=== PATIENT | male | born 1960 | race Caucasian/White ===

== ENCOUNTER 2017-09-04 15:40 | Emergency (ER) | payer OTHER ==
[~2017-09-04] VITALS: Ht 172.7 cm; Wt 70.1 kg
[2017-09-04] MEDS ORDERED: DILANTIN100 MG PO ×2 (15:46→18:32)
[2017-09-04 16:35] LABS: URINE BILIRUBIN NEGATIVE (Negative); URINE BLOOD 3+ (Negative); URINE CLARITY CLEAR; URINE COLOR YELLOW; URINE GLUCOSE-RANDOM NEGATIVE (Negative); URINE KETONES NEGATIVE (Negative); URINE LEUKOCYTES-REFLEX NEGATIVE (Negative); URINE NITRITE-REFLEX NEGATIVE (Negative); URINE PROTEIN 3+ (Negative); URINE SPECIFIC GRAVITY 1.025 (1.005-1.030)
[2017-09-04 16:35] LABS: ABSOLUTE EOSINOPHILS 0.4 thou/uL (0.0-0.7); ABSOLUTE LYMPHOCYTES 1.6 thou/uL (0.8-5.3); ABSOLUTE MONOCYTES 0.5 thou/uL (0.0-1.2); BASOPHILS 0.6 %; EOSINOPHILS 8.1 %; HEMATOCRIT 39.4 % (42.0-52.0); HEMOGLOBIN 13.6 gm/dL (14.0-18.0); LYMPHOCYTES 35.4 %; MCH 31.7 pg (26.0-34.0); MCHC 34.5 g/dL (28.0-37.0); MCV 91.8 fL (80.0-100.0); MONOCYTES 11.6 %; MPV 10.2 fl. (7.2-11.1); NUCLEATED RBCS 0 /100WBC; PLATELET COUNT* 70 thou/uL (150-400); POLYS 44.3 %; RBC 4.29 mil/uL (4.50-6.00); RDW-CV 15.1 % (10.5-14.5); WBC 4.5 thou/uL (4.0-11.0)
[2017-09-04 16:41] LABS: ANION GAP 4 mmol/L (7-16); BUN 24 mg/dL (7-18); CALCIUM 8.7 mg/dL (8.5-10.1); CHLORIDE 106 mmol/L (98-107); CO2 32 mmol/L (21-32); CREATININE 1.9 mg/dL (0.6-1.3); GLUCOSE 87 mg/dL (70-99); POTASSIUM 3.5 mmol/L (3.5-5.1); SODIUM 142 mmol/L (136-145)
[2017-09-04 16:44] LABS: HYALINE CASTS 4-10 Moderate /LPF (None Seen); MUCUS None Seen strn/LPF (None Seen); SQUAMOUS 0-3 Few /LPF (0-3)
[2017-09-04 16:45] LABS: BACTERIA-REFLEX 1-9 Few /HPF (None Seen); CRYSTALS None Seen /LPF (None Seen); URINE RBC 3-10 Few /HPF (0-2); URINE WBC-REFLEX 0-5 Rare /HPF (0-5)
[2017-09-04 16:53] LABS: ALBUMIN 2.4 g/dL (3.4-5.0); ALKALINE PHOSPHATASE 92 U/L (46-116); SGOT 62 U/L (15-37); SGPT 39 U/L (30-65); TOTAL BILIRUBIN 0.8 mg/dL (<0.1-1.0); TROPONIN-I LEVEL <0.06 ng/mL (<0.06)
[2017-09-04] MEDS ORDERED: LISINOPRIL10 MG PO (18:32)
[2017-09-04] MEDS ORDERED: HYDROCHLOROTHIA25 M2 PO (18:32)
[2017-09-04 18:54] VITALS: BP 170/101
--- NOTE | 2017-09-05 10:55 | EKG ---
[place] [address] ELECTROCARDIOGRAM REPORT Name: MAURO HOU [id number] Admission: 09/04/17 Attend Phys: Discharge: 09/04/17 Date of : 64 Report #: [id number] THIS REPORT FOR: //name// [facility] ED Test Date: 2017-09-04 Test Time: 15:44:37 Pat Name: MAURO ROSAWITT Department: Room: Gender: M Game [employer] Host: Osman SHINE : 1960 Requested By: Bina Nieves Order Number: [id number] Ame MD: Thad Horta Measurements Intervals [place] Rate: 80 P: 5 CA: 175 QRS: -6 QRSD: 92 T: 50 QT: 402 QTc: 464 Interpretive Statements sinus rhythm with pac's Baseline wander in lead(s) V3,V4,V5,V6 No previous ECG available for comparison Electronically Signed On 09-05-2017 10:55:36 FAMILY MEDICINE RESIDENT by Thad Horta [email or web address] <ELECTRONICALLY SIGNED> By: Thad Horta MD, [facility] 09/05/17 1055 1544 1544 Thad Horta MD, FACC /EPI
== END 2017-09-04 18:55 | disposition home or self-care (01) ==
LOC: M.ERS 15:40
PROVIDERS: Personal Emergency Response Attendant
DX: J06.9 Acute upper respiratory infection, unspecified (principal); I16.0 Hypertensive urgency; F17.200 Nicotine dependence, unspecified, uncomplicated; Z76.0 Encounter for issue of repeat prescription; Z88.0 Allergy status to penicillin